=== PATIENT | male | born 1970 | race Two or more races ===

== ENCOUNTER 2021-01-10 22:12 | Emergency (ER) | payer OTHER ==
[~2021-01-10] VITALS: Ht 175.3 cm; Wt 99.8 kg
[2021-01-11 01:11] LABS: Albumin 3.5 g/dL (3.4-5.0); Basophils # (auto) 0.1 10 ^3/uL (0-0.2); Calcium 7.9 mg/dL (8.5-10.1); Eosinophils # (auto) 0.3 10 ^3/uL (0-0.8); Eosinophils % (auto) 3.4 % (0.0-7.0); Hemoglobin 13.9 g/dL (13.5-17.5); Lymphocytes # (auto) 2.7 10 ^3/uL (0.4-5.4); Lymphocytes % (auto) 28.6 % (10.0-50.0); Magnesium 2.2 mg/dL (1.6-2.6); Mean Corpuscular Hemoglobin 31.3 pg (28.0-32.0); Mean Corpuscular Hgb Conc. 35.6 g/dL (32.0-36.0); Mean Corpuscular Volume 87.9 fL (80.0-100.0); Monocytes # (auto) 0.4 10 ^3/uL (0-1.3); Monocytes % (auto) 4.7 % (0.0-12.0); Neutrophils % (auto) 62.3 % (37.0-80.0); Platelet Count (auto) 270 10^3/uL (140-450); Potassium 3.7 mmol/L (3.5-5.1); Red Blood Cells 4.44 10^6/uL (4.5-5.90); Red Cell Distribution Width 13.5 % (11.8-14.3); White Blood Cell 9.6 10^3/uL (4.4-10.8)
[2021-01-11 01:20] LABS: BUN/Creatinine Ratio 18.4; Bilirubin, Total 0.3 mg/dL (0.2-1.0)
[2021-01-11 01:21] LABS: Acetaminophen < 2.0 ug/mL (10-30); Salicylate < 1.7 mg/dL (2.8-20.0)
[2021-01-11 03:06] LABS: Urine Bacteria NONE SEEN /hpf (None Seen); Urine Blood 1+ /uL (Negative); Urine Specific Gravity 1.004 (1.001-1.035); Urine WBC <1 /hpf (0 - 3)
[2021-01-11 03:08] LABS: Amphetamine Screen, Urine NEGATIVE (NEGATIVE); Barbiturate Scree,Urine NEGATIVE (NEGATIVE); Benzodiazephine Screen, Urine NEGATIVE (NEGATIVE); Cannabinoid Screen, Urine NEGATIVE (NEGATIVE); Cocaine Screen, Urine NEGATIVE (NEGATIVE); Opiate Scree,Urine NEGATIVE (NEGATIVE); Phencyclidine Screen, Urine NEGATIVE (NEGATIVE)
[2021-01-12] MEDS ORDERED: CARV3.1240 PO (11:02)
[2021-01-12] MEDS ORDERED: ASPI-498 PO (11:02)
[2021-01-12] MEDS ORDERED: LISI2.5T47 PO (11:02)
[2021-01-12] MEDS ORDERED: PARO-135 PO (11:02)
[2021-01-12] MEDS ORDERED: ATOR10TA52 PO (11:02)
[2021-01-12 16:35] VITALS: BP 114/84
== END 2021-01-12 17:00 ==
LOC: EDBD 22:12 → ER 22:16
DX: T43.222A Poisoning by selective serotonin reuptake inhibitors, intentional self-harm, initial encounter (principal); F32.9 Major depressive disorder, single episode, unspecified; R41.0 Disorientation, unspecified; I10 Essential (primary) hypertension; I25.2 Old myocardial infarction; Z20.822 Contact with and (suspected) exposure to COVID-19; Y92.89 Other specified places as the place of occurrence of the external cause
CPT/HCPCS: 36415; 71045; 80053; 80307; 80320; 80329; 81001; 83735; 85025; 87426; 93005